=== PATIENT | female | born 1985 | race Caucasian/White ===

== ENCOUNTER 2017-09-17 23:34 | Inpatient (IN) | END 2017-09-18 16:00 | disposition home or self-care (01) | DRG 781 ==

== ENCOUNTER 2017-09-19 15:17 | Outpatient (CLI) | END 2017-09-19 16:40 | disposition home or self-care (01) ==

== ENCOUNTER 2017-11-01 23:56 | Inpatient (IN) | END 2017-11-04 18:24 | disposition home or self-care (01) | DRG 775 ==